=== PATIENT | female | born 2005 | race Two or more races ===

== ENCOUNTER 2025-10-31 18:09 | Emergency (ER) | payer OTHER ==
[~2025-10-31] VITALS: Ht 175.3 cm; Wt 81.6 kg
[2025-10-31] MEDS ORDERED: KETOROLAC TROMETHAMINE 30 MG VIAL ONE (18:53)
[2025-10-31] MEDS ORDERED: ORPHENADRINE CITRATE 30 MG/ML AMPUL ONE (18:53)
[2025-10-31] MEDS ORDERED: ORPHENADRINE CITRATE 30 MG/ML AMPUL IM ONE (19:00)
[2025-10-31] MEDS ORDERED: KETOROLAC TROMETHAMINE 30 MG VIAL IM ONE (19:00)
[2025-10-31] MEDS ORDERED: 0.9 % SODIUM CHLORIDE 1,000 ML IV ONE (19:45)
[2025-10-31] MEDS ORDERED: PROPOFOL 10,000 MCG/ML VIAL ONE (20:24)
[2025-10-31] MEDS ORDERED: DICLOFENAC SODI50 MG PO (22:22)
== END 2025-10-31 22:34 ==
LOC: ER 18:09
DX: M25.511 Pain in right shoulder (principal); S43.084A Other dislocation of right shoulder joint, initial encounter; W19.XXXA Unspecified fall, initial encounter; Y93.89 Activity, other specified; Y92.830 Public park as the place of occurrence of the external cause; Y99.8 Other external cause status
CPT/HCPCS: 23655; 73030; 93041; 96365; 96366; 96372; 99284; J1885; J2360; J7030